=== PATIENT | female | born 1970 ===

== ENCOUNTER → 2019-05-09 | Outpatient (CLI) | payer OTHER ==
[~2019-05-09] VITALS: Ht 165.1 cm; Wt 129.3 kg
[~2019-05-09] MED LIST: FLUOXETINE HCL40 MG PO; HYDROCHLOROTHIA25 M2 PO; LIPITOR40 MG PO; NEURONTIN 400M400 M2 PO; TURMERIC500 M2 PO
--- NOTE | ~2019-05-09 | HPC ---
[facility] [address] [place] [address] PAIN MANAGEMENT CONSULTATION Name: SANDY WAGNER Room #: REG ERMA SamuelRichard.#: [id number] Admission: 05/09/19 Attend Phys: Jose L Mathias DO Discharge: Date of : 70 Report #: [id number] THIS REPORT FOR: cc: Haris Lorenz MD,Haris Mathias,Jose L Santiago DO ~ CC: Jose L Lorenz MD DATE OF SERVICE: 05/09/2019 REFERRING PHYSICIAN: Haris Lorenz MD CHIEF COMPLAINT: Neck pain, right upper extremity pain with paresthesias. HISTORY OF PRESENT ILLNESS: As you know, the patient is a 49-year-old female who reports acute onset of neck pain, right upper extremity pain and paresthesias that presented 09/12/2017. She denies any specific injury or trauma that may have led to symptom development. 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 She was then sent to discuss her case with Neurosurgery. It was found during a neurosurgery evaluation that she has changes at C5-C6 level leading to moderate central canal stenosis due to disk extrusion. It was determined the patient should trial conservative treatment options initially. If these did not improve overall symptoms, then move on with surgical options. She has undergone physical therapy approximately 6-7 sessions which apparently exacerbated her symptoms and she has since discontinued. There was no traction techniques used during these treatments. Today, the patient reports pain is continuous with periodic exacerbations. She describes the pain as burning, shooting, aching, cramping, sharp, stabbing, numbness and tingling. The patient places current pain score 3/10, daily average of 5/10, worst pain has been is 9/10. The patient states that moving her right upper extremity in the different positions exacerbate symptoms. Pain is improved with having her arm over her head. She has been referred to our service by her neurosurgeon, Dr. Haris Lorenz to trial epidural injections under fluoroscopic guidance to address cervical radicular symptoms. PAST MEDICAL HISTORY: 1. Fibromyalgia. 2. Hypertension. 3. GERD. 4. Migraine headaches. [address] [address] PAIN MANAGEMENT CONSULTATION Name: SANDY WAGNER [id number] Admission: 05/09/19 Attend Phys: Jose L Mathias DO Discharge: Date of : 70 Report #: [id number] 5. Class 3 morbid obesity. 6. Chronic intractable pain. PAST SURGICAL HISTORY: 1. Salpingectomy. 2. D and C with fibroid removal x2. SOCIAL HISTORY: The patient smokes half pack tobacco per day or greater and has done so for 25 years. Denies IV or illicit drug use. Denies any chronic alcohol use. 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 She is not in litigation in regard to pain. She is unaccompanied today. REVIEW OF SYSTEMS: Positive for weight gain, decrease in appetite, fatigue and weakness, frequent and recurrent headaches, wearing corrective eyewear, loss of appetite, changes in bowel movements, nausea, vomiting, frequent diarrhea, constipation interspersed with diarrhea, abdominal pain, trace hematuria, painful menses, irregular menses, varicose veins, numbness and tingling sensations involving the right upper extremity and intermittent left upper extremity, nervousness, insomnia, bleeding and bruising tendencies. All other review of systems negative per 12-point review of systems other than those listed in the history of present illness. Pain impact score of 27/70 indicating moderate interference of daily activities secondary to pain. IMAGING STUDIES: MRI cervical spine obtained on 12/21/2017 shows moderate C5-C6 disk extrusion causing moderate central canal stenosis. There is a small C6-C7 disk extrusion, mild C4-C5 and C6-C7 spinal canal stenosis. There is also noted C5-C6 neural foraminal stenosis. PHYSICAL EXAMINATION: VITAL SIGNS: Blood pressure 126/80, pulse 81, respiratory rate 16 and unlabored. The patient is 97% on room air. Height 5 feet 5 inches tall, weight 285 pounds, BMI calculated 47.4. GENERAL: Well-developed, well-nourished, well-hydrated, class 3 morbidly obese 49-year-old female, appearing stated age, pain is rated at around 3/10. HEENT: Normocephalic and atraumatic. Pupils are equal, round, and reactive to light. Extraocular muscles are intact. NEUROLOGIC: Speech fluent. The patient deemed a fair historian. LUNGS: Clear. No wheeze, rhonchi, or rales. CARDIOVASCULAR: Regular. No appreciable gallop or rub. ABDOMEN: Soft, obese, normal active bowel sounds. EXTREMITIES: Show no clubbing, no cyanosis, no edema. MUSCULOSKELETAL: Upper extremity strength appears symmetrical 5/5. The neck is supple without changes in range of motion. There is no tenderness to palpation [address] [address] PAIN MANAGEMENT CONSULTATION Name: SANDY WAGNER Room #: REG ERMA Carmen#: [id number] Admission: 05/09/19 Attend Phys: Jose L Mathias DO Discharge: Date of : 70 Report #: [id number] over the cervical spine or paraspinal musculature. The patient has normal and symmetrical muscle bulk and tone in the upper extremities. Strength is equal and symmetrical including assistant unit forester strength. She is intact to light touch from C5 through T1 dermatomes. Spurling's test is equivocal on the right, negative left. Cervical traction does improve overall symptoms. ASSESSMENT: 1. Cervical radiculopathy. 2. Displacement of cervical intervertebral disk with radicular symptoms. 3. Cervical spinal stenosis. 4. Cervical spondylosis with radiculopathy. 5. Chronic intractable pain. PLAN: 1. Based on today's physical exam and history the patient has provided, the description the patient uses in regard to pain as well as distribution of the symptoms, the likely source of the patient's pain is a cervical radiculopathy. Given the bilateral nature of the symptoms, this would appear to be related more to the C5-C6 central canal stenosis. I am at a loss to advise the patient on the amount of stenosis that is present at C5-C6 level as the imaging we have to date is a year and a half old. Further imaging will be necessary if the patient is choosing to move forward with any type of surgical option. After a discussion today of the findings of the MRI from 2018 and how they would correlate to the patient's symptoms, we discussed treatment options following was discussed with the patient today. 2. We discussed physical therapy, stretching exercises and traction techniques. The patient was in physical therapy, but there were no traction techniques provided, this would improve the patient's symptoms by utilizing reverse gravitational effects, which may provide the patient with good benefit. This would be a very conservative treatment option and might help the patient consistently. We discussed medication management having adjustments made to her neuropathic medication in the form of gabapentin. Currently, she is taking 400 mg 3 times a day and this could rapidly escalated up to 1200 mg 3 times a day if needed for neuropathic pain control. We discussed the cervical epidural injection for which the patient was referred to our clinic and ultimately surgical options. After reviewing the risks and benefits of all the proposed treatment options, the patient wished to move forward with a cervical epidural injection. 3. The patient was advised that authorization would have to be obtained before the patient could undergo a cervical epidural injection. Authorization could take anywhere from 24-72 hours to obtain. We will begin this authorization process immediately. Once we have this authorization available, the patient was scheduled back to our clinic understanding that the day of that procedure, she would have to go home afterwards as we have found better efficacy with the patient can remain relatively sedentary for at least 12-24 hours post-procedurally. The patient will make adjustments [place] [address] PAIN MANAGEMENT CONSULTATION Name: SANDY WAGNER Room #: REG ERMA Carmen#: [id number] Admission: 05/09/19 Attend Phys: Jose L Mathias DO Discharge: Date of : 70 Report #: [id number] able to accommodate the injection and the home to rest and relax after the procedure. We will coordinate with the patient to come back once all these have been completed. 4. No medication changes made at today's visit. We did discuss the possibility of adjusting the neuropathic medications, though the patient does not wish to make a change at this time. She wishes to trial the epidural injections for which she was referred to our clinic. 5. We will see the patient back in followup visit once we have been able to schedule a mutually beneficial time for the patient to undergo cervical epidural injection. We will keep the patient apprised of our schedule. She will make adjustments in her work schedule to be able to accommodate the injection time and the time afterward to rest. 6. We wish to thank Dr. Lorenz for the referral of the patient to our clinic. We will keep you apprised of response to treatment as we address suspected cervical radiculopathy. We wish to once again, thank you for the opportunity to see this patient in consultation. 7. Therapy or nonsurgical options will ultimately be recommended, if she does not see good efficacious benefit with injections or medications. By: [id number] Jose L Mathias DO /nt
[2019-05-09 10:04] VITALS: BP 126/80
--- NOTE | 2019-05-09 10:26 | NUR ---
Pain Clinic Assessment: 1. History of Osteoarthritis: NECK History of Rheumatoid Arthritis: Not Applicable 2. Height: 5 ft. 5 in. 165.1 cm. Weight: 285.0 lb. oz. 129.276 kg. Patient's BMI: 47.4 3. Vital Signs: BP: 126/80 Pulse: 81 Resp: 16 Temp: 02 Sat: 97 ECG Mon: 4. Pain Intensity: 3 5. Fall Risk: Dizziness: N Needs help standing or walking: N Fallen in the last 3 months: N Fall risk comments: 6. Patient on Blood Thinner: None 7. History of Hypertension: N 8. Opioid Therapy greater than 6 weeks: N Opiate Contract Signed: 9. Risk Assessment Tool Provided: LOW RISK 03/03 10. Functional Assessment Tool: 11. Recreational Drug Use: Never Drug Type: Tobacco Use: Current Every Day Smoker Tobacco Type: Cigarettes Amount or Packs/day: 1/2 DAY How Many Years: 25 Alcohol Use: No Frequency: Quant:
== END ==
LOC: PAIN 06:45
DX: M47.22 Other spondylosis with radiculopathy, cervical region (principal); M50.20 Other cervical disc displacement, unspecified cervical region; M48.02 Spinal stenosis, cervical region; G89.29 Other chronic pain; M79.641 Pain in right hand; M79.7 Fibromyalgia; I10 Essential (primary) hypertension; K21.9 Gastro-esophageal reflux disease without esophagitis; G43.809 Other migraine, not intractable, without status migrainosus

== ENCOUNTER → 2019-05-16 | Outpatient (CLI) | payer OTHER ==
[~2019-05-16] VITALS: Ht 165.1 cm; Wt 131.1 kg
[2019-05-16 10:47] VITALS: BP 140/83
--- NOTE | 2019-05-16 10:51 | NUR ---
Pain Clinic Assessment: 1. History of Osteoarthritis: NECK History of Rheumatoid Arthritis: Not Applicable 2. Height: 5 ft. 5 in. 165.1 cm. Weight: 289.0 lb. oz. 131.090 kg. Patient's BMI: 48.1 3. Vital Signs: BP: 140/83 Pulse: 90 Resp: 16 Temp: 02 Sat: 98 ECG Mon: 4. Pain Intensity: 3 5. Fall Risk: Dizziness: N Needs help standing or walking: N Fallen in the last 3 months: N Fall risk comments: 6. Patient on Blood Thinner: None 7. History of Hypertension: N 8. Opioid Therapy greater than 6 weeks: N Opiate Contract Signed: 9. Risk Assessment Tool Provided: LOW RISK 1 10. Functional Assessment Tool: 11. Recreational Drug Use: Never Drug Type: Tobacco Use: Current Every Day Smoker Tobacco Type: Cigarettes Amount or Packs/day: 10 CIGS How Many Years: 25 Alcohol Use: No Frequency: Quant:
--- NOTE | 2019-05-17 12:44 | HPC ---
[address] [address] PAIN MANAGEMENT CONSULTATION Name: SANDY WAGNER Room #: REG [facility]..#: [id number] Admission: 05/16/19 Attend Phys: Jose L Mathias DO Discharge: Date of : 70 Report #: [id number] THIS REPORT FOR: cc: Haris Lorenz MD,Haris Mathias,Jose L Santiago DO ~ DATE OF SERVICE: 05/16/2019 REFERRING PHYSICIAN: Haris Lorenz MD CHIEF COMPLAINT: Neck pain, right upper extremity pain with paresthesias. HISTORY OF PRESENT ILLNESS: As you know, the patient is a 49-year-old female who reports acute onset of neck pain, right upper extremity pain, paresthesias was presented on 09/12/2017. She denies any specific injury or trauma that may have led to symptom development. She was referred to our service by her neurosurgeon, Dr. Haris Lorenz to undergo cervical epidural injection under fluoroscopic guidance to address the pain, the patient reports as chronic, describing the pain as burning, shooting, aching, sharp and stabbing. She is placing current pain score today at 3/10. She returns today in followup visit to undergo cervical epidural injection under fluoroscopic guidance to address cervical radicular symptoms. The patient has had no changes in medical history since our visit of 05/09/2019. ALLERGIES: PENICILLIN, SULFA, ERYTHROMYCIN. CURRENT MEDICATIONS: Turmeric 500 mg once a day, hydrochlorothiazide 25 mg once a day, fluoxetine 40 mg once a day, gabapentin 400 mg 3 times a day, atorvastatin 40 mg once a day. SOCIAL HISTORY: The patient smokes half pack tobacco per day and has done so for greater than 25 years. Denies IV or illicit drug use. Denies any chronic alcohol use. 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 She is unaccompanied today. IMAGING: No new imaging is available. PHYSICAL EXAMINATION: VITAL SIGNS: Blood pressure 140/83, pulse 90, respiratory rate 16 and unlabored. The patient is 98% on room air. Height 5 feet 5 inches tall, weight 289.0 pounds, BMI calculated 48.1. GENERAL: Well-developed, well-nourished, well-hydrated, class 3, morbidly obese 49-year-old female, appearing stated age, pain is rated today 3/10. HEENT: Normocephalic, atraumatic. Pupils equal, round, reactive to light. Extraocular muscles are intact. Sclerae nonicteric without injection. [address] [address] PAIN MANAGEMENT CONSULTATION Name: SANDY WAGNER Room #: REG [facility]#: [id number] Admission: 05/16/19 Attend Phys: Jose L Mathias DO Discharge: Date of : 70 Report #: [id number] EXTREMITIES: Show no clubbing, no cyanosis, and no edema. MUSCULOSKELETAL: Upper extremity strength appears symmetrical 5/5, intact to light touch from C5 through T1 dermatomes. There is no tenderness to palpation over the cervical spine. The patient has normal range of motion of the cervical spine. Spurling's test is equivocal right, negative left. Cervical traction does improve overall symptoms again today. ASSESSMENT: 1. Cervical radiculopathy. 2. Displacement of cervical intervertebral disk with radiculopathy. 3. Cervical spinal stenosis. 4. Cervical spondylosis with radiculopathy. 5. Chronic intractable pain. PLAN: 1. The patient returns today in followup visit having undergone preapproval processes and able to clear her schedule to undergo a cervical epidural injection under fluoroscopic guidance. The patient reports pain level today of around 3/10. She describes the pain as neuropathic in origin given the burning, electrical, numbness and tingling descript she offers today. We have prepared to have the patient undergo an epidural injection today. She has been advised risks and benefits of this procedure. These risks include but are not necessarily limited to bleeding, bruising, infection, worsening pain, no relief of pain, also risk of temporary or permanent muscle weakness, temporary or permanent nerve damage, possible paralysis, post-dural puncture headache and . The patient states understood and wished to proceed. 2. We will see the patient back in followup visit in approximately 30 days. At that time, review the efficacy of today's cervical epidural injection and determine if next in the series of cervical epidural injections would be recommended. PROCEDURE NOTE DESCRIPTION OF PROCEDURE: Cervical epidural steroid injection under fluoroscopic guidance. This is the first procedure of the first series that the patient is undergoing. After obtaining written consent, the patient was taken back to the fluoroscopy suite and placed in a prone position with separate pillows under chest for decrease cervical lordosis. The skin overlying the cervical area was prepped and draped in an aseptic fashion. Cervical vertebral interspace was identified by AP fluoroscopy. The skin and subcutaneous tissue overlying the target site of injection was anesthetized using 3 mL of 1% lidocaine. A 20-guage 4.5-inch Tuohy needle was advanced under fluoroscopic guidance toward [address] [address] PAIN MANAGEMENT CONSULTATION Name: SANDY WAGNER Room #: REG ERMA Carmen#: [id number] Admission: 05/16/19 Attend Phys: Jose L Mathias DO Discharge: Date of : 70 Report #: [id number] the epidural space using a midline approach. The epidural space was identified using a loss of resistance to air technique. After negative aspiration for heme or cerebrospinal fluid, a total of 0.5 mL of Omnipaque was injected. A cervical epidurogram was confirmed using AP and oblique fluoroscopy. After negative aspiration for heme or cerebrospinal fluid, 5 mL of solution containing 2 mL 40 mg/mL, 80 mg total of triamcinolone along with 3 mL of lidocaine 1% was injected in increments. Contrast spread was noted from posterior epidural space. The needle was then retracted approximately long term and the needle track was flushed with 1 mL of 1% lidocaine. There were no apparent new sensory deficits in the upper extremities present following the procedure. A sterile bandage was placed over the injection site. The heart rate, pulse oximetry and blood pressure were continuously monitored after the procedure. There were no apparent complications. The patient tolerated the procedure well and was carefully escorted in the recovery room in stable condition. After meeting discharge criteria, the patient was discharged home. <ELECTRONICALLY SIGNED> By: Jose L Mathias DO 05/17/19 [id number] Jose L Mathias DO /nt
== END | disposition home or self-care (01) ==
LOC: PAIN 06:49
DX: M50.10 Cervical disc disorder with radiculopathy, unspecified cervical region (principal); M48.02 Spinal stenosis, cervical region; M47.22 Other spondylosis with radiculopathy, cervical region; G89.29 Other chronic pain; F17.210 Nicotine dependence, cigarettes, uncomplicated; Z98.890 Other specified postprocedural states; Z79.899 Other long term (current) drug therapy; Z88.0 Allergy status to penicillin; Z88.2 Allergy status to sulfonamides; Z88.8 Allergy status to other drugs, medicaments and biological substances